=== PATIENT | female | born 1950 | race Caucasian/White ===

== ENCOUNTER 2017-03-12 15:59 | Inpatient (IN) | payer OTHER, MEDICAID ==
[~2017-03-12] VITALS: Ht 152.4 cm; Wt 41.7 kg
[2017-03-12 16:09] VITALS: BP_SYST 112
[2017-03-12 17:16] LABS: BASOPHILS % (AUTO) 0.4 % (0.0-2.0); HEMATOCRIT 40.7 % (36-48); HEMOGLOBIN 13.6 g/dL (12.0-16.0); LYMPHOCYTES # (AUTO) 2.9 K/uL (1.0-5.5); LYMPHOCYTES % (AUTO) 33.6 % (20.5-51.5); MEAN CORPUSCULAR HEMOGLOBIN 31 pg (27-31); MEAN CORPUSCULAR HGB CONC 33 % (32-36); MEAN CORPUSCULAR VOLUME 94 fL (79.0-98.0); MONOCYTES # (AUTO) 0.8 K/uL (0.0-1.0); MONOCYTES % (AUTO) 9.5 % (1.7-9.3); NEUTROPHILS # (AUTO) 4.9 K/uL (1.8-7.7); NEUTROPHILS % (AUTO) 56.5 % (40.0-70.0); RED BLOOD CELL COUNT(AUTO) 4.32 MIL/uL (4.2-6.2); RED CELL DISTRIBUTION WIDTH 12.4 % (9.0-15.0); WHITE BLOOD COUNT (AUTO) 8.6 K/uL (4.8-10.8)
[2017-03-12 17:21] LABS: PLATELET COUNT (AUTO) 190 K/uL (130-430)
[2017-03-12 17:23] LABS: CALCIUM 9.7 mg/dL (8.4-11.0); CREATININE 0.41 mg/dL (0.55-1.30); POTASSIUM 4.3 mmol/L (3.5-5.1)
[2017-03-12 17:27] LABS: TOTAL BILIRUBIN 0.6 mg/dL (0.0-1.0)
[2017-03-12 18:03] LABS: BILIRUBIN,URINE NEGATIVE (NEGATIVE); BLOOD, URINE TRACE (NEGATIVE); CLARITY/URINE HAZY (CLEAR); COLOR,URINE YELLOW (YELLOW); GLUCOSE,URINE NEGATIVE (NEGATIVE); KETONES,URINE NEGATIVE (NEGATIVE); LEUKOCYTE ESTERASE ,URINE 1+ (NEGATIVE); NITRITE, URINE POSITIVE (NEGATIVE); PH,URINE 6.5 (5.0-8.0); PROTEIN URINE NEGATIVE (NEGATIVE); UROBILINOGEN,URINE 0.2 (0.2-1.0)
[2017-03-12 18:14] LABS: BACTERIA,URINE MANY /HPF (None Seen); MUCUS,URINE 1+ /LPF (None Seen); WBC,URINE 20-50 /HPF (0-3)
[2017-03-12] MEDS ORDERED: cefTRIAXone 1 GM VIAL IM ONE (18:45)
[2017-03-12] MEDS ORDERED: TEMA30CA5 PO (19:44)
[2017-03-12] MEDS ORDERED: CALC625T65 PO (19:44)
[2017-03-12] MEDS ORDERED: LEVE500T53 PO (19:44)
[2017-03-12] MEDS ORDERED: PHEN64.8 PO (19:44)
[2017-03-12] MEDS ORDERED: SER100 PO (19:44)
[2017-03-12] MEDS ORDERED: TEMAZEPAM 15 MG CAPSULE PO SCH (21:00)
[2017-03-12] MEDS ORDERED: levETIRAcetam 500 MG TABLET PO SCH (21:00)
[2017-03-12] MEDS ORDERED: PHENobarbital 30 MG TABLET PO SCH (21:00)
[2017-03-12] MEDS ORDERED: LORazepam 2 MG/ML VIAL IVP PRN (21:00)
[2017-03-12] MEDS: levETIRAcetam 1,500 MG in NS 100 ML IV SCH (21:00)
[2017-03-12 21:08] VITALS: BP_SYST 136
[2017-03-12] MEDS ORDERED: ACETAMINOPHEN 650 MG SUPP.RECT RC PRN (21:15)
[2017-03-12] MEDS: D5LR 1,000 ML IV SCH (21:55)
[2017-03-12] MEDS: PANTOPRAZOLE SODIUM 40 MG/VIAL (PROTONIX) IVP SCH (23:15)
[2017-03-13 00:47] VITALS: BP_SYST 142
[2017-03-13] MEDS: LORazepam 2 MG/ML VIAL IVP PRN ×2 (00:59→18:40)
[2017-03-13 04:26] VITALS: BP_SYST 99
[2017-03-13] MEDS: D5LR 1,000 ML IV SCH ×2 (08:19→18:39)
[2017-03-13 08:30] VITALS: BP_SYST 117
[2017-03-13] MEDS: levETIRAcetam 1,500 MG in NS 100 ML IV SCH ×2 (09:20→22:24)
[2017-03-13] MEDS: PANTOPRAZOLE SODIUM 40 MG/VIAL (PROTONIX) IVP SCH ×2 (09:20→21:11)
[2017-03-13 11:51] VITALS: BP_SYST 111
[2017-03-13 16:50] VITALS: BP_SYST 103
[2017-03-13] MEDS ORDERED: QUEtiapine FUMARATE 100 MG TABLET PO SCH (18:00)
[2017-03-13 20:00] VITALS: BP_SYST 125
[2017-03-13] MEDS: cefTRIAXone 1 GM in D5W 50 ML IV SCH (21:12)
[2017-03-14 01:02] VITALS: BP_SYST 107
[2017-03-14 04:45] VITALS: BP_SYST 120
[2017-03-14] MEDS: D5LR 1,000 ML IV SCH ×3 (06:42→23:00)
[2017-03-14 08:00] VITALS: BP_SYST 103
[2017-03-14 08:28] LABS: BASOPHILS % (AUTO) 0.1 % (0.0-2.0); HEMATOCRIT 36.9 % (36-48); HEMOGLOBIN 12.5 g/dL (12.0-16.0); LYMPHOCYTES # (AUTO) 2.1 K/uL (1.0-5.5); LYMPHOCYTES % (AUTO) 41.1 % (20.5-51.5); MEAN CORPUSCULAR HEMOGLOBIN 32 pg (27-31); MEAN CORPUSCULAR HGB CONC 34 % (32-36); MEAN CORPUSCULAR VOLUME 94 fL (79.0-98.0); MONOCYTES # (AUTO) 0.5 K/uL (0.0-1.0); MONOCYTES % (AUTO) 10.2 % (1.7-9.3); NEUTROPHILS # (AUTO) 2.4 K/uL (1.8-7.7); NEUTROPHILS % (AUTO) 48.6 % (40.0-70.0); PLATELET COUNT (AUTO) 145 K/uL (130-430); RED BLOOD CELL COUNT(AUTO) 3.93 MIL/uL (4.2-6.2)
[2017-03-14 08:41] LABS: INR 1.2 (0.8-1.2); PROTHROMBIN TIME 11.8 SECS (9.5-12.5)
[2017-03-14 08:45] LABS: ALBUMIN 3.2 g/dL (3.4-4.8); CALCIUM 8.8 mg/dL (8.4-11.0); CREATININE 0.3 mg/dL (0.55-1.30); POTASSIUM 3.3 mmol/L (3.5-5.1); TOTAL BILIRUBIN 0.5 mg/dL (0.0-1.0)
[2017-03-14] MEDS: PANTOPRAZOLE SODIUM 40 MG/VIAL (PROTONIX) IVP SCH ×2 (09:27→20:59)
[2017-03-14] MEDS: levETIRAcetam 1,500 MG in NS 100 ML IV SCH ×2 (10:26→20:59)
[2017-03-14] MEDS ORDERED: POTASSIUM CHLORIDE 40 MEQ, LIDOCAINE JECT 2% PF 100 MG 50 MG in NS 250 ML IV ONE (12:30)
[2017-03-14 12:53] VITALS: BP_SYST 142
[2017-03-14] MEDS ORDERED: MAGNESIUM SULFATE 50 ML IV ONE (13:00)
[2017-03-14 16:11] VITALS: BP_SYST 113
[2017-03-14 20:00] VITALS: BP_SYST 90
[2017-03-14] MEDS: cefTRIAXone 1 GM in D5W 50 ML IV SCH (20:59)
[2017-03-14] MEDS: LORazepam 2 MG/ML VIAL IVP PRN (21:57)
[2017-03-15] VITALS (7 sets, daily range): BP systolic 106–133
[2017-03-15] MEDS: D5LR 1,000 ML IV SCH ×2 (08:33→17:48)
[2017-03-15 08:56] LABS: CALCIUM 8.5 mg/dL (8.4-11.0); CREATININE 0.39 mg/dL (0.55-1.30); POTASSIUM 3.7 mmol/L (3.5-5.1)
[2017-03-15] MEDS: levETIRAcetam 1,500 MG in NS 100 ML IV SCH ×2 (09:03→20:47)
[2017-03-15] MEDS: PANTOPRAZOLE SODIUM 40 MG/VIAL (PROTONIX) IVP SCH ×2 (09:03→21:20)
[2017-03-15] MEDS: LORazepam 2 MG/ML VIAL IVP PRN ×2 (16:38→20:38)
[2017-03-15] MEDS: cefTRIAXone 1 GM in D5W 50 ML IV SCH (20:47)
[2017-03-16 00:16] VITALS: BP_SYST 142
[2017-03-16 04:03] VITALS: BP_SYST 114
[2017-03-16] MEDS: D5LR 1,000 ML IV SCH ×3 (05:51→23:03)
[2017-03-16 08:11] LABS: CREATININE 0.39 mg/dL (0.55-1.30); POTASSIUM 3.2 mmol/L (3.5-5.1)
[2017-03-16 08:20] VITALS: BP_SYST 135
[2017-03-16] MEDS: levETIRAcetam 1,500 MG in NS 100 ML IV SCH ×2 (09:10→21:53)
[2017-03-16] MEDS: PANTOPRAZOLE SODIUM 40 MG/VIAL (PROTONIX) IVP SCH ×2 (09:10→21:53)
[2017-03-16 11:26] VITALS: BP_SYST 135
[2017-03-16] MEDS ORDERED: POTASSIUM CHLORIDE 40 MEQ, LIDOCAINE JECT 2% PF 100 MG 50 MG in NS 250 ML IV ONE (14:15)
[2017-03-16 15:43] VITALS: BP_SYST 122
[2017-03-16] MEDS: LORazepam 2 MG/ML VIAL IVP PRN ×2 (17:25→22:55)
[2017-03-16] MEDS: cefTRIAXone 1 GM in D5W 50 ML IV SCH (22:52)
[2017-03-17 00:05] VITALS: BP_SYST 126
[2017-03-17 03:53] VITALS: BP_SYST 119
[2017-03-17 08:00] VITALS: BP_SYST 140
[2017-03-17] MEDS: PANTOPRAZOLE SODIUM 40 MG/VIAL (PROTONIX) IVP SCH ×2 (09:23→21:09)
[2017-03-17] MEDS: D5LR 1,000 ML IV SCH ×2 (09:24→11:00)
[2017-03-17] MEDS: levETIRAcetam 1,500 MG in NS 100 ML IV SCH ×2 (09:24→21:09)
[2017-03-17 11:50] VITALS: BP_SYST 143
[2017-03-17 16:05] VITALS: BP_SYST 98
[2017-03-17] MEDS: LORazepam 2 MG/ML VIAL IVP PRN ×2 (21:16→22:35)
[2017-03-17] MEDS: cefTRIAXone 1 GM in D5W 50 ML IV SCH (22:37)
[2017-03-18 00:20] VITALS: BP_SYST 120
[2017-03-18] MEDS: D5LR 1,000 ML IV SCH ×2 (02:05→15:58)
[2017-03-18 05:31] VITALS: BP_SYST 109
[2017-03-18 07:04] LABS: CALCIUM 9.2 mg/dL (8.4-11.0); CREATININE 0.41 mg/dL (0.55-1.30); POTASSIUM 4.1 mmol/L (3.5-5.1)
[2017-03-18 07:07] LABS: BASOPHILS % (AUTO) 0.1 % (0.0-2.0); HEMATOCRIT 36.6 % (36-48); HEMOGLOBIN 12.8 g/dL (12.0-16.0); LYMPHOCYTES # (AUTO) 2.4 K/uL (1.0-5.5); LYMPHOCYTES % (AUTO) 40.1 % (20.5-51.5); MEAN CORPUSCULAR HEMOGLOBIN 33 pg (27-31); MEAN CORPUSCULAR HGB CONC 35 % (32-36); MEAN CORPUSCULAR VOLUME 93 fL (79.0-98.0); MONOCYTES # (AUTO) 0.6 K/uL (0.0-1.0); MONOCYTES % (AUTO) 9.5 % (1.7-9.3); NEUTROPHILS # (AUTO) 2.9 K/uL (1.8-7.7); NEUTROPHILS % (AUTO) 50.3 % (40.0-70.0); PLATELET COUNT (AUTO) 159 K/uL (130-430); RED BLOOD CELL COUNT(AUTO) 3.95 MIL/uL (4.2-6.2); RED CELL DISTRIBUTION WIDTH 12.4 % (9.0-15.0); WHITE BLOOD COUNT (AUTO) 5.9 K/uL (4.8-10.8)
[2017-03-18 07:11] LABS: INR 1.2 (0.8-1.2); PROTHROMBIN TIME 12.1 SECS (9.5-12.5)
[2017-03-18 08:15] VITALS: BP_SYST 115
[2017-03-18] MEDS: levETIRAcetam 1,500 MG in NS 100 ML IV SCH ×2 (09:07→22:13)
[2017-03-18] MEDS: PANTOPRAZOLE SODIUM 40 MG/VIAL (PROTONIX) IVP SCH ×2 (09:09→22:09)
[2017-03-18] MEDS: MIDAZOLAM HCL 5 MG/5 ML VIAL ONE ×3 (11:57→12:02)
[2017-03-18] MEDS: MEPERIDINE HCL/PF 25 MG/ML DISP.SYRIN ONE ×4 (11:57→12:02)
[2017-03-18 12:40] VITALS: BP_SYST 128
[2017-03-18 16:42] VITALS: BP_SYST 116
[2017-03-18 20:05] VITALS: BP_SYST 118
[2017-03-18] MEDS: cefTRIAXone 1 GM in D5W 50 ML IV SCH (21:44)
[2017-03-18] MEDS: LORazepam 2 MG/ML VIAL IVP PRN (22:47)
[2017-03-19 03:05] VITALS: BP_SYST 136
[2017-03-19 05:05] VITALS: BP_SYST 136
[2017-03-19 06:04] VITALS: BP_SYST 110
[2017-03-19 08:00] VITALS: BP_SYST 132
[2017-03-19 08:58] VITALS: BP_SYST 132; BP_SYST 134
[2017-03-19] MEDS: levETIRAcetam 1,500 MG in NS 100 ML IV SCH (09:04)
[2017-03-19] MEDS: PANTOPRAZOLE SODIUM 40 MG/VIAL (PROTONIX) IVP SCH (09:05)
[2017-03-19] MEDS ORDERED: LORazepam 2 MG/ML VIAL IVP ONE (11:15)
[2017-03-19 12:13] VITALS: BP_SYST 134
== END 2017-03-19 15:20 | disposition home health service (06) | DRG 100 ==
LOC: SED 15:59 → STU 19:25
PROVIDERS: ADMIT Internal Medicine; ATTEND Internal Medicine
PROC: 0DB68ZX Excision of Stomach, Via Natural or Artificial Opening Endoscopic, Diagnostic (ICD-10-PCS; principal; 2017-03-18 15:30)
DX: G40.909 Epilepsy, unspecified, not intractable, without status epilepticus (principal); R53.2 Functional quadriplegia; G93.40 Encephalopathy, unspecified; E44.1 Mild protein-calorie malnutrition; R13.10 Dysphagia, unspecified; Q39.6 Congenital diverticulum of esophagus; Z68.1 Body mass index [BMI] 19.9 or less, adult; F03.90 Unspecified dementia, unspecified severity, without behavioral disturbance, psychotic disturbance, mood disturbance, and anxiety; K22.4 Dyskinesia of esophagus; K29.00 Acute gastritis without bleeding; E87.6 Hypokalemia; K44.9 Diaphragmatic hernia without obstruction or gangrene; F79 Unspecified intellectual disabilities; F29 Unspecified psychosis not due to a substance or known physiological condition; Z79.899 Other long term (current) drug therapy; Z86.73 Personal history of transient ischemic attack (TIA), and cerebral infarction without residual deficits; Z99.3 Dependence on wheelchair; Z88.0 Allergy status to penicillin; Z88.8 Allergy status to other drugs, medicaments and biological substances
CPT/HCPCS: 36415; 43239; 70450-TC; 74000-TC; 74220-TC; 80048; 80053; 81000-TC; 83690-TC; 83735-TC; 85025; 85610-TC; 85730-TC; 87081; 87086; 87186-TC; 88305; 88312; 88313; 92610-GN; 96372; 99285; C9113; J0696; J1953; J2060; J2175; J2250; J3475; J3480; J7050; J7060; J7120

== ENCOUNTER 2018-05-08 17:22 | Inpatient (IN) | payer OTHER, MEDICAID ==
[~2018-05-08] VITALS: Ht 147.3 cm; Wt 38.1 kg
[~2018-05-08 17:22] MED LIST: BENZ0.5T3 PO; FLUO-119 PO; IBUP-1968 PO; LEVE500T9 PO; PHEN30TA41 PO; POLY17PO4 PO; QUET50TA PO; TEMA30CA PO; TEMA30CA5 PO; TYC3 PO
[2018-05-08 17:28] VITALS: BP_SYST 146
[2018-05-08] MEDS ORDERED: NACL 0.9% 1,000 ML IV ONE (17:41)
[2018-05-08] MEDS ORDERED: ASPIRIN 81 MG TAB.CHEW PO ONE (17:45)
[2018-05-08] MEDS ORDERED: LORazepam 2 MG/ML VIAL (FOR ER USE) IVP ONE ×2 (18:15→18:45)
[2018-05-08 18:18] LABS: BASOPHILS % (AUTO) 0.2 % (0.0-2.0); EOSINOPHILS % (AUTO) 0.1 % (0.0-4.0); HEMATOCRIT 40.4 % (36-48); LYMPHOCYTES # (AUTO) 0.8 K/uL (1.0-5.5); LYMPHOCYTES % (AUTO) 6.7 % (20.5-51.5); MEAN CORPUSCULAR HEMOGLOBIN 31 pg (27-31); MEAN CORPUSCULAR HGB CONC 32 % (32-36); MEAN CORPUSCULAR VOLUME 96 fL (79.0-98.0); MONOCYTES # (AUTO) 0.9 K/uL (0.0-1.0); MONOCYTES % (AUTO) 7.8 % (1.7-9.3); NEUTROPHILS # (AUTO) 10.1 K/uL (1.8-7.7); NEUTROPHILS % (AUTO) 85.2 % (40.0-70.0); PLATELET COUNT (AUTO) 247 K/uL (130-430); RED BLOOD CELL COUNT(AUTO) 4.21 MIL/uL (4.2-6.2); RED CELL DISTRIBUTION WIDTH 12.8 % (9.0-15.0); WHITE BLOOD COUNT (AUTO) 11.8 K/uL (4.8-10.8)
[2018-05-08 18:31] LABS: BILIRUBIN,URINE NEGATIVE (NEGATIVE); BLOOD, URINE NEGATIVE (NEGATIVE); CLARITY/URINE SL CLOUDY (CLEAR); COLOR,URINE YELLOW (YELLOW); GLUCOSE,URINE NEGATIVE (NEGATIVE); KETONES,URINE NEGATIVE (NEGATIVE); LEUKOCYTE ESTERASE ,URINE NEGATIVE (NEGATIVE); NITRITE, URINE NEGATIVE (NEGATIVE); PH,URINE 6.5 (5.0-8.0); PROTEIN URINE 2+ (NEGATIVE); UROBILINOGEN,URINE 0.2 (0.2-1.0)
[2018-05-08 18:33] LABS: ANION GAP 8 (5-15); CALCIUM 9.4 mg/dL (8.4-11.0); CHLORIDE 97 mmol/L (98-107); CREATININE 0.62 mg/dL (0.55-1.30); GLUCOSE 109 mg/dL (70-99); SODIUM SERUM 132 mmol/L (136-145); UREA NITROGEN, BLOOD 17 mg/dL (8-21)
[2018-05-08 18:34] LABS: BACTERIA,URINE MODERATE /HPF (None Seen); RBC,URINE 0-3 /HPF (0-3); WBC,URINE 0-3 /HPF (0-3)
[2018-05-08 18:35] LABS: MUCUS,URINE 1+ /LPF (None Seen); URINE AMORPHOUS URATE 2+ /HPF (None Seen)
[2018-05-08 18:37] LABS: GFR AFRICAN AMERICAN 124 mL/min (>90)
[2018-05-08 18:38] LABS: BARBITURATE, URINE POSITIVE (NEG <=200)
[2018-05-08 18:39] LABS: ALANINE AMINOTRANSFERASE 24 U/L (12-78); ALBUMIN 3.7 g/dL (3.4-4.8); ASPARTATE AMINOTRANSFERASE 28 U/L (10-37); LIPASE 107 U/L (73-393)
[2018-05-08 18:39] LABS: BENZODIAZEPINE, URINE POSITIVE (NEG <=150); CANNABINOID, URINE NEGATIVE (NEG <=50); COCAINE, URINE NEGATIVE (NEG <=150); METHAMPHETAMINES SCREEN,URINE NEGATIVE (NEG <=500); OPIATE, URINE NEGATIVE (NEG <=100); PHENCYCLIDINE SCREEN,URINE NEGATIVE (NEG <=25); UR TRICYCLIC ANTIDEPRESSANTS NEGATIVE (NEG <=300); URINE AMPHETAMINE NEGATIVE (NEG <=500); URINE METHADONE NEGATIVE (NEG <=200); URINE OXYCODONE SCREEN NEGATIVE (NEG <=100); URINE PROPOXYPHENE SCREEN NEGATIVE (NEG <=300)
[2018-05-08 18:40] LABS: ACETAMINOPHEN < 1 ug/mL (1-30); ALCOHOL, BLOOD < 3 mg/dL (<10); INR 1.2 (0.8-1.2)
[2018-05-08] MEDS ORDERED: MORPHINE 4 MG/ML INJ. SYRINGE IVP ONE (20:15)
[2018-05-08] MEDS ORDERED: DOCU-144 PO (21:22)
[2018-05-08] MEDS ORDERED: MULT-1089 PO (21:22)
[2018-05-08] MEDS ORDERED: PHEN30TA41 PO (21:22)
[2018-05-08] MEDS ORDERED: CALC625T65 PO (21:22)
[2018-05-08] MEDS ORDERED: BENZ0.5T3 PO (21:22)
[2018-05-08] MEDS ORDERED: POLY17PO4 PO (21:22)
[2018-05-08] MEDS ORDERED: [UNRECOGNIZED DRUG - CODE] PO (21:22)
[2018-05-08] MEDS ORDERED: [UNRECOGNIZED DRUG - CODE] PO (21:22)
[2018-05-08] MEDS ORDERED: VITD400 PO (21:22)
[2018-05-08] MEDS ORDERED: PRO20 PO (21:22)
[2018-05-08] MEDS ORDERED: ACETAMINOPHEN/CODEINE 300 MG-30 MG TABLET PO PRN (22:15)
[2018-05-08] MEDS ORDERED: ALBUTEROL SULFATE 0.083% 2.5 MG/3 ML VIAL.NEB INH PRN (22:15)
[2018-05-08] MEDS ORDERED: IBUPROFEN 400 MG TABLET PO PRN (22:15)
[2018-05-08] MEDS ORDERED: levETIRAcetam 500 MG TABLET PO ONE (22:30)
[2018-05-08] MEDS ORDERED: TEMAZEPAM 15 MG CAPSULE PO PRN (22:30)
[2018-05-08 22:42] VITALS: BP_SYST 100
[2018-05-08 23:01] VITALS: BP_SYST 100
[2018-05-08] MEDS: NACL 0.9% 1,000 ML IV SCH (23:13)
[2018-05-09 02:11] VITALS: BP_SYST 132
[2018-05-09 04:07] VITALS: BP_SYST 132
[2018-05-09 07:16] LABS: EOSINOPHILS % (AUTO) 0.3 % (0.0-4.0); HEMATOCRIT 35.6 % (36-48); HEMOGLOBIN 12.1 g/dL (12.0-16.0); LYMPHOCYTES # (AUTO) 0.8 K/uL (1.0-5.5); LYMPHOCYTES % (AUTO) 11.1 % (20.5-51.5); MEAN CORPUSCULAR HEMOGLOBIN 33 pg (27-31); MEAN CORPUSCULAR HGB CONC 34 % (32-36); MEAN CORPUSCULAR VOLUME 96 fL (79.0-98.0); MONOCYTES # (AUTO) 0.7 K/uL (0.0-1.0); MONOCYTES % (AUTO) 9.8 % (1.7-9.3); NEUTROPHILS # (AUTO) 5.8 K/uL (1.8-7.7); NEUTROPHILS % (AUTO) 78.8 % (40.0-70.0); PLATELET COUNT (AUTO) 190 K/uL (130-430); RED CELL DISTRIBUTION WIDTH 12.7 % (9.0-15.0); WHITE BLOOD COUNT (AUTO) 7.3 K/uL (4.8-10.8)
[2018-05-09 07:41] LABS: CALCIUM 8.9 mg/dL (8.4-11.0); CREATININE 0.44 mg/dL (0.55-1.30); POTASSIUM 3.9 mmol/L (3.5-5.1)
[2018-05-09 08:06] VITALS: BP_SYST 141
[2018-05-09] MEDS: BENZTROPINE MESYLATE 1 MG TABLET PO SCH ×2 (08:27→20:52)
[2018-05-09] MEDS: CHOLECALCIFEROL (VITAMIN D-3) 400 UNIT TABLET PO SCH (08:28)
[2018-05-09] MEDS: FLUoxetine HCL 20 MG CAPSULE (PROzac) PO SCH (08:28)
[2018-05-09] MEDS: levETIRAcetam 500 MG TABLET PO SCH ×2 (08:28→20:51)
[2018-05-09] MEDS: DOCUSATE SODIUM 100 MG/10 ML UDC PO SCH (08:29)
[2018-05-09] MEDS: POLYETHYLENE GLYCOL 3350, 17 GM/ POWD.PACK PO SCH ×2 (08:29→20:51)
[2018-05-09] MEDS: MULTIVITAMINS TAB 1 TABLET PO SCH (08:29)
[2018-05-09] MEDS ORDERED: NUT TX IMPAIRED DIGEST FXN PO SCH (09:00)
[2018-05-09] MEDS ORDERED: CALCIUM POLYCARBOPHIL 625 MG PO SCH (09:00)
[2018-05-09] MEDS ORDERED: LORazepam 2 MG/ML VIAL IVP ONE (10:00)
[2018-05-09 12:34] VITALS: BP_SYST 148
[2018-05-09 16:02] VITALS: BP_SYST 165
[2018-05-09] MEDS: NACL 0.9% 1,000 ML IV SCH (18:32)
[2018-05-09 19:49] VITALS: BP_SYST 137
[2018-05-09] MEDS: LEVOFLOXACIN 250 MG/D5W 50 ML IV SCH (19:53)
[2018-05-09] MEDS: PHENobarbital 30 MG TABLET PO SCH (20:52)
[2018-05-09] MEDS ORDERED: QUEtiapine FUMARATE 25 MG TABLET PO SCH (21:00)
[2018-05-09] MEDS ORDERED: PSYLLIUM HUSK 0.4 GM PO SCH (21:00)
[2018-05-10 06:24] VITALS: BP_SYST 125
[2018-05-10 07:40] LABS: BASOPHILS % (AUTO) 0.6 % (0.0-2.0); EOSINOPHILS % (AUTO) 0.1 % (0.0-4.0); HEMATOCRIT 36.6 % (36-48); HEMOGLOBIN 12.1 g/dL (12.0-16.0); LYMPHOCYTES # (AUTO) 1.2 K/uL (1.0-5.5); LYMPHOCYTES % (AUTO) 17.3 % (20.5-51.5); MEAN CORPUSCULAR HEMOGLOBIN 32 pg (27-31); MEAN CORPUSCULAR HGB CONC 33 % (32-36); MEAN CORPUSCULAR VOLUME 96 fL (79.0-98.0); MONOCYTES # (AUTO) 0.7 K/uL (0.0-1.0); MONOCYTES % (AUTO) 10.4 % (1.7-9.3); NEUTROPHILS % (AUTO) 71.6 % (40.0-70.0); PLATELET COUNT (AUTO) 192 K/uL (130-430); RED BLOOD CELL COUNT(AUTO) 3.82 MIL/uL (4.2-6.2); RED CELL DISTRIBUTION WIDTH 12.5 % (9.0-15.0); WHITE BLOOD COUNT (AUTO) 6.9 K/uL (4.8-10.8)
[2018-05-10 07:55] LABS: ALBUMIN 2.8 g/dL (3.4-4.8); CALCIUM 8.5 mg/dL (8.4-11.0); CREATININE 0.4 mg/dL (0.55-1.30); POTASSIUM 3.4 mmol/L (3.5-5.1); TOTAL BILIRUBIN 0.6 mg/dL (0.0-1.0)
[2018-05-10 08:00] VITALS: BP_SYST 141
[2018-05-10] MEDS: levETIRAcetam 500 MG TABLET PO SCH ×2 (08:52→20:42)
[2018-05-10] MEDS: POLYETHYLENE GLYCOL 3350, 17 GM/ POWD.PACK PO SCH ×2 (08:52→20:46)
[2018-05-10] MEDS: DOCUSATE SODIUM 100 MG/10 ML UDC PO SCH (08:52)
[2018-05-10] MEDS: BENZTROPINE MESYLATE 1 MG TABLET PO SCH ×2 (08:52→20:45)
[2018-05-10] MEDS: MULTIVITAMINS TAB 1 TABLET PO SCH (08:53)
[2018-05-10] MEDS: CHOLECALCIFEROL (VITAMIN D-3) 400 UNIT TABLET PO SCH (08:53)
[2018-05-10] MEDS: FLUoxetine HCL 20 MG CAPSULE (PROzac) PO SCH (08:53)
[2018-05-10 10:22] LABS: INR 1.2 (0.8-1.2); PROTHROMBIN TIME 11.7 SECS (9.5-12.5)
[2018-05-10 12:32] VITALS: BP_SYST 130
[2018-05-10] MEDS: NACL 0.9% 1,000 ML IV SCH (13:23)
[2018-05-10] MEDS ORDERED: BALSAM PERU/CASTOR OIL 60 GM OINT...G. TP ONE (16:15)
[2018-05-10 16:32] VITALS: BP_SYST 117
[2018-05-10] MEDS ORDERED: TEMAZEPAM 15 MG CAPSULE PO PRN (19:00)
[2018-05-10 19:50] VITALS: BP_SYST 125
[2018-05-10] MEDS: POTASSIUM CHLORIDE 40 MEQ in NACL 0.9% 1,000 ML IV SCH (20:35)
[2018-05-10] MEDS: LEVOFLOXACIN 250 MG/D5W 50 ML IV SCH (20:36)
[2018-05-10] MEDS: QUEtiapine FUMARATE 25 MG TABLET PO SCH (20:43)
[2018-05-11 00:54] VITALS: BP_SYST 155
[2018-05-11 08:04] VITALS: BP_SYST 128
[2018-05-11] MEDS: levETIRAcetam 500 MG TABLET PO SCH ×2 (08:41→21:05)
[2018-05-11] MEDS: FLUoxetine HCL 20 MG CAPSULE (PROzac) PO SCH (08:41)
[2018-05-11] MEDS: BENZTROPINE MESYLATE 1 MG TABLET PO SCH ×2 (08:41→21:05)
[2018-05-11] MEDS: CHOLECALCIFEROL (VITAMIN D-3) 400 UNIT TABLET PO SCH (08:41)
[2018-05-11] MEDS: DOCUSATE SODIUM 100 MG/10 ML UDC PO SCH (08:42)
[2018-05-11] MEDS: POLYETHYLENE GLYCOL 3350, 17 GM/ POWD.PACK PO SCH ×2 (08:42→21:05)
[2018-05-11] MEDS: BALSAM PERU/CASTOR OIL 60 GM OINT...G. TP SCH (08:42)
[2018-05-11] MEDS: MULTIVITAMINS TAB 1 TABLET PO SCH (08:42)
[2018-05-11 11:09] LABS: BASOPHILS % (AUTO) 0.3 % (0.0-2.0); HEMATOCRIT 37.8 % (36-48); HEMOGLOBIN 12.1 g/dL (12.0-16.0); LYMPHOCYTES % (AUTO) 13.4 % (20.5-51.5); MEAN CORPUSCULAR HEMOGLOBIN 31 pg (27-31); MEAN CORPUSCULAR HGB CONC 32 % (32-36); MEAN CORPUSCULAR VOLUME 95 fL (79.0-98.0); MONOCYTES # (AUTO) 0.9 K/uL (0.0-1.0); NEUTROPHILS # (AUTO) 5.8 K/uL (1.8-7.7); NEUTROPHILS % (AUTO) 75.3 % (40.0-70.0); PLATELET COUNT (AUTO) 225 K/uL (130-430); RED BLOOD CELL COUNT(AUTO) 3.97 MIL/uL (4.2-6.2); RED CELL DISTRIBUTION WIDTH 12.5 % (9.0-15.0); WHITE BLOOD COUNT (AUTO) 7.7 K/uL (4.8-10.8)
[2018-05-11] MEDS ORDERED: LORazepam 2 MG/ML VIAL IVP ONE (11:15)
[2018-05-11 11:24] VITALS: BP_SYST 146
[2018-05-11 11:35] LABS: CALCIUM 8.5 mg/dL (8.4-11.0); CREATININE 0.44 mg/dL (0.55-1.30); POTASSIUM 3.7 mmol/L (3.5-5.1)
[2018-05-11 11:41] LABS: TOTAL BILIRUBIN 0.6 mg/dL (0.0-1.0)
[2018-05-11 15:40] VITALS: BP_SYST 116
[2018-05-11] MEDS: POTASSIUM CHLORIDE 40 MEQ in NACL 0.9% 1,000 ML IV SCH (17:21)
[2018-05-11 19:45] VITALS: BP_SYST 128
[2018-05-11] MEDS: QUEtiapine FUMARATE 25 MG TABLET PO SCH (21:05)
[2018-05-11] MEDS: LEVOFLOXACIN 250 MG/D5W 50 ML IV SCH (21:05)
[2018-05-11] MEDS: PHENobarbital 30 MG TABLET PO SCH (21:28)
[2018-05-11] MEDS: metroNIDAZOLE 500 mg/NS 100 ML IV SCH (22:22)
[2018-05-12] VITALS: BP_SYST 133
[2018-05-12 07:27] VITALS: BP_SYST 132
[2018-05-12 08:25] VITALS: BP_SYST 132
[2018-05-12] MEDS: levETIRAcetam 500 MG TABLET PO SCH ×2 (09:12→21:27)
[2018-05-12] MEDS: CHOLECALCIFEROL (VITAMIN D-3) 400 UNIT TABLET PO SCH (09:12)
[2018-05-12] MEDS: BENZTROPINE MESYLATE 1 MG TABLET PO SCH ×2 (09:12→21:27)
[2018-05-12] MEDS: FLUoxetine HCL 20 MG CAPSULE (PROzac) PO SCH (09:12)
[2018-05-12] MEDS: DOCUSATE SODIUM 100 MG/10 ML UDC PO SCH (09:12)
[2018-05-12] MEDS: POLYETHYLENE GLYCOL 3350, 17 GM/ POWD.PACK PO SCH ×2 (09:13→21:27)
[2018-05-12] MEDS: MULTIVITAMINS TAB 1 TABLET PO SCH (09:13)
[2018-05-12] MEDS: metroNIDAZOLE 500 mg/NS 100 ML IV SCH ×2 (09:13→23:20)
[2018-05-12] MEDS: BALSAM PERU/CASTOR OIL 60 GM OINT...G. TP SCH (09:14)
[2018-05-12 11:54] VITALS: BP_SYST 107
[2018-05-12] MEDS: POTASSIUM CHLORIDE 40 MEQ in NACL 0.9% 1,000 ML IV SCH (13:58)
[2018-05-12] MEDS ORDERED: NA PHOS,M-B/NA PHOS,DI-BA 118 ML (FLEET ENEMA) RC ONE (15:15)
[2018-05-12] MEDS ORDERED: MINERAL OIL 133 ML ENEMA RC ONE (15:15)
[2018-05-12 17:14] VITALS: BP_SYST 120
[2018-05-12 20:00] VITALS: BP_SYST 122
[2018-05-12] MEDS: QUEtiapine FUMARATE 25 MG TABLET PO SCH (21:27)
[2018-05-12] MEDS: LEVOFLOXACIN 250 MG/D5W 50 ML IV SCH (21:28)
[2018-05-13 00:42] VITALS: BP_SYST 150
[2018-05-13] MEDS: POTASSIUM CHLORIDE 40 MEQ in NACL 0.9% 1,000 ML IV SCH (08:42)
[2018-05-13] MEDS: BALSAM PERU/CASTOR OIL 60 GM OINT...G. TP SCH (09:00)
[2018-05-13] MEDS: BENZTROPINE MESYLATE 1 MG TABLET PO SCH ×2 (09:38→22:01)
[2018-05-13] MEDS: FLUoxetine HCL 20 MG CAPSULE (PROzac) PO SCH (09:38)
[2018-05-13] MEDS: CHOLECALCIFEROL (VITAMIN D-3) 400 UNIT TABLET PO SCH (09:38)
[2018-05-13] MEDS: levETIRAcetam 500 MG TABLET PO SCH ×2 (09:38→22:01)
[2018-05-13] MEDS: DOCUSATE SODIUM 100 MG/10 ML UDC PO SCH (09:38)
[2018-05-13] MEDS: metroNIDAZOLE 500 mg/NS 100 ML IV SCH ×2 (09:39→22:02)
[2018-05-13] MEDS: POLYETHYLENE GLYCOL 3350, 17 GM/ POWD.PACK PO SCH ×2 (09:39→22:01)
[2018-05-13] MEDS: MULTIVITAMINS TAB 1 TABLET PO SCH (09:39)
[2018-05-13 12:04] VITALS: BP_SYST 124
[2018-05-13 16:02] VITALS: BP_SYST 144
[2018-05-13 19:10] VITALS: BP_SYST 118
[2018-05-13] MEDS: LEVOFLOXACIN 250 MG/D5W 50 ML IV SCH (22:00)
[2018-05-13] MEDS: QUEtiapine FUMARATE 25 MG TABLET PO SCH (22:00)
[2018-05-13] MEDS: PHENobarbital 30 MG TABLET PO SCH (22:01)
[2018-05-14 00:45] VITALS: BP_SYST 97
[2018-05-14 08:00] VITALS: BP_SYST 142
[2018-05-14] MEDS: metroNIDAZOLE 500 mg/NS 100 ML IV SCH (09:16)
[2018-05-14] MEDS: MULTIVITAMINS TAB 1 TABLET PO SCH (09:17)
[2018-05-14] MEDS: BENZTROPINE MESYLATE 1 MG TABLET PO SCH (09:17)
[2018-05-14] MEDS: CHOLECALCIFEROL (VITAMIN D-3) 400 UNIT TABLET PO SCH (09:18)
[2018-05-14] MEDS: FLUoxetine HCL 20 MG CAPSULE (PROzac) PO SCH (09:18)
[2018-05-14] MEDS: levETIRAcetam 500 MG TABLET PO SCH (09:18)
[2018-05-14] MEDS: DOCUSATE SODIUM 100 MG/10 ML UDC PO SCH (09:19)
[2018-05-14] MEDS: POLYETHYLENE GLYCOL 3350, 17 GM/ POWD.PACK PO SCH (09:19)
[2018-05-14] MEDS: BALSAM PERU/CASTOR OIL 60 GM OINT...G. TP SCH (09:20)
[2018-05-14] MEDS ORDERED: LEVO250T2 PO (11:46)
[2018-05-14 11:50] VITALS: BP_SYST 146
[2018-05-14 12:06] VITALS: BP_SYST 140
== END 2018-05-14 15:00 | disposition home health service (06) | DRG 871 ==
LOC: SED 17:22 → STU 20:36 → SMU 05-11 12:22
PROVIDERS: ADMIT Internal Medicine; ATTEND Internal Medicine
DX: A41.9 Sepsis, unspecified organism (principal); S72.142A Displaced intertrochanteric fracture of left femur, initial encounter for closed fracture; E43 Unspecified severe protein-calorie malnutrition; J69.0 Pneumonitis due to inhalation of food and vomit; R53.2 Functional quadriplegia; S32.019A Unspecified fracture of first lumbar vertebra, initial encounter for closed fracture; S32.029A Unspecified fracture of second lumbar vertebra, initial encounter for closed fracture; S32.039A Unspecified fracture of third lumbar vertebra, initial encounter for closed fracture; E87.1 Hypo-osmolality and hyponatremia; E87.2 Acidosis; F72 Severe intellectual disabilities; N39.0 Urinary tract infection, site not specified; Z68.1 Body mass index [BMI] 19.9 or less, adult; R64 Cachexia; I96 Gangrene, not elsewhere classified; M80.00XA Age-related osteoporosis with current pathological fracture, unspecified site, initial encounter for fracture; F03.90 Unspecified dementia, unspecified severity, without behavioral disturbance, psychotic disturbance, mood disturbance, and anxiety; F48.9 Nonpsychotic mental disorder, unspecified; G40.909 Epilepsy, unspecified, not intractable, without status epilepticus; I51.7 Cardiomegaly; J44.9 Chronic obstructive pulmonary disease, unspecified; M40.209 Unspecified kyphosis, site unspecified; R13.10 Dysphagia, unspecified; R62.7 Adult failure to thrive; E87.6 Hypokalemia; I34.0 Nonrheumatic mitral (valve) insufficiency; M47.9 Spondylosis, unspecified; G20 Parkinson's disease; W06.XXXA Fall from bed, initial encounter; Z74.01 Bed confinement status; Z99.3 Dependence on wheelchair; Y93.89 Activity, other specified; Y92.89 Other specified places as the place of occurrence of the external cause; Y99.8 Other external cause status; Z88.0 Allergy status to penicillin; Z88.8 Allergy status to other drugs, medicaments and biological substances; Z79.899 Other long term (current) drug therapy
CPT/HCPCS: 36415; 70450-TC; 71045; 71250-TC; 72128; 72131; 72192-TC; 80048; 80053; 80307; 81000-TC; 82550-TC; 83605; 83690-TC; 83735-TC; 84134; 84484; 85025; 85610-TC; 85730-TC; 86886; 86900; 86901; 87040-TC; 87081; 87086; 93005; 96361; 96365; 96375; 99291; G0378; G0480; G0481; G0482; J1956; J2060; J2270; J3480; J3490; J7030

== ENCOUNTER 2018-06-10 17:31 | Inpatient (IN) | payer OTHER, MEDICAID ==
[~2018-06-10] VITALS: Ht 147.3 cm; Wt 39.9 kg
[~2018-06-10 17:31] MED LIST changes: +CALC625T65 PO; +DOCU-144 PO; +LEVO250T2 PO; +MULT-1089 PO; +PRO20 PO; -QUET50TA PO; +VITD400 PO; +[UNRECOGNIZED DRUG - CODE] PO; +[UNRECOGNIZED DRUG - CODE] PO
[2018-06-10 17:49] VITALS: BP_SYST 109
[2018-06-10] MEDS ORDERED: LORazepam 2 MG/ML VIAL IM ONE (19:15)
[2018-06-10 19:21] LABS: HEMATOCRIT 39.8 % (36-48); HEMOGLOBIN 13.3 g/dL (12.0-16.0); MEAN CORPUSCULAR HEMOGLOBIN 32 pg (27-31); MEAN CORPUSCULAR HGB CONC 33 % (32-36); MEAN CORPUSCULAR VOLUME 97 fL (79.0-98.0); PLATELET COUNT (AUTO) 308 K/uL (130-430); RED CELL DISTRIBUTION WIDTH 13.2 % (9.0-15.0); WHITE BLOOD COUNT (AUTO) 8.5 K/uL (4.8-10.8)
[2018-06-10 19:22] LABS: BASOPHILS % (AUTO) 0.3 % (0.0-2.0); EOSINOPHILS % (AUTO) 0.1 % (0.0-4.0); LYMPHOCYTES # (AUTO) 1.4 K/uL (1.0-5.5); LYMPHOCYTES % (AUTO) 17.1 % (20.5-51.5); MONOCYTES # (AUTO) 0.7 K/uL (0.0-1.0); MONOCYTES % (AUTO) 7.8 % (1.7-9.3); NEUTROPHILS # (AUTO) 6.4 K/uL (1.8-7.7); NEUTROPHILS % (AUTO) 74.7 % (40.0-70.0)
[2018-06-10] MEDS ORDERED: LORazepam 2 MG/ML VIAL (FOR ER USE) ONE (19:24)
[2018-06-10 19:30] LABS: CALCIUM 9.5 mg/dL (8.4-11.0); CREATININE 0.58 mg/dL (0.55-1.30); POTASSIUM 3.9 mmol/L (3.5-5.1)
[2018-06-10 19:31] LABS: ALBUMIN 3.5 g/dL (3.4-4.8); TOTAL BILIRUBIN 0.5 mg/dL (0.0-1.0)
[2018-06-10] MEDS ORDERED: NS 500 ML IV ONE (20:45)
[2018-06-10 21:04] LABS: BARBITURATE, URINE POSITIVE (NEG <=200); BENZODIAZEPINE, URINE POSITIVE (NEG <=150); CANNABINOID, URINE NEGATIVE (NEG <=50); COCAINE, URINE NEGATIVE (NEG <=150); METHAMPHETAMINES SCREEN,URINE NEGATIVE (NEG <=500); OPIATE, URINE NEGATIVE (NEG <=100); PHENCYCLIDINE SCREEN,URINE NEGATIVE (NEG <=25); UR TRICYCLIC ANTIDEPRESSANTS NEGATIVE (NEG <=300); URINE AMPHETAMINE NEGATIVE (NEG <=500); URINE METHADONE NEGATIVE (NEG <=200); URINE OXYCODONE SCREEN NEGATIVE (NEG <=100); URINE PROPOXYPHENE SCREEN NEGATIVE (NEG <=300)
[2018-06-10 21:05] LABS: BILIRUBIN,URINE NEGATIVE (NEGATIVE); BLOOD, URINE NEGATIVE (NEGATIVE); CLARITY/URINE HAZY (CLEAR); COLOR,URINE YELLOW (YELLOW); GLUCOSE,URINE NEGATIVE (NEGATIVE); KETONES,URINE NEGATIVE (NEGATIVE); LEUKOCYTE ESTERASE ,URINE TRACE (NEGATIVE); NITRITE, URINE NEGATIVE (NEGATIVE); PROTEIN URINE 1+ (NEGATIVE); UROBILINOGEN,URINE 0.2 (0.2-1.0)
[2018-06-10 21:06] LABS: BACTERIA,URINE FEW /HPF (None Seen); MUCUS,URINE None Seen /LPF (None Seen); RBC,URINE NONE SEEN /HPF (0-3)
[2018-06-10] MEDS ORDERED: LEVOFLOXACIN 500 MG/D5W 100 ML IV ONE (21:15)
[2018-06-10 21:31] LABS: INR 1.3 (0.8-1.2); PROTHROMBIN TIME 13.3 SECS (9.5-12.5)
[2018-06-10 21:51] LABS: PHENOBARBITAL 30.9 ug/mL (15.0-40.0)
[2018-06-10] MEDS ORDERED: ASPIRIN 81 MG TAB.CHEW PO ONE (22:15)
[2018-06-10 22:52] VITALS: BP_SYST 141
[2018-06-11] MEDS ORDERED: ACETAMINOPHEN/CODEINE 300 MG-30 MG TABLET PO PRN (01:00)
[2018-06-11] MEDS ORDERED: TEMAZEPAM 15 MG CAPSULE PO PRN (01:00)
[2018-06-11] MEDS ORDERED: IBUPROFEN 400 MG TABLET PO PRN (01:00)
[2018-06-11] MEDS ORDERED: HYDROcodone/ACETAMIN 5-325 MG TAB (NORCO/ VICODIN) PO PRN (01:15)
[2018-06-11] MEDS ORDERED: HYDROcodone/ACETAMIN 10-325 MG TAB PO PRN (01:15)
[2018-06-11] MEDS ORDERED: ONDANSETRON HCL 4 MG/2 ML VIAL IVP PRN (01:15)
[2018-06-11] MEDS ORDERED: LEVOFLOXACIN 500 MG/D5W 100 ML IV SCH (01:15)
[2018-06-11] MEDS ORDERED: ACETAMINOPHEN 325 MG TABLET PO PRN (01:15)
[2018-06-11 01:43] VITALS: BP_SYST 118
[2018-06-11] MEDS: NORMAL SALINE 5 ML DISP.SYRIN IVF SCH ×3 (05:36→22:12)
[2018-06-11 08:22] VITALS: BP_SYST 147
[2018-06-11] MEDS ORDERED: CALCIUM POLYCARBOPHIL 625 MG PO SCH (09:00)
[2018-06-11] MEDS: DOCUSATE SODIUM 100 MG/10 ML UDC PO SCH (09:00)
[2018-06-11] MEDS ORDERED: NUT TX IMPAIRED DIGEST FXN PO SCH (09:00)
[2018-06-11] MEDS: FLUoxetine HCL 20 MG CAPSULE (PROzac) PO SCH (09:05)
[2018-06-11] MEDS: CHOLECALCIFEROL (VITAMIN D-3) 400 UNIT TABLET PO SCH (09:05)
[2018-06-11] MEDS: MULTIVITAMINS TAB 1 TABLET PO SCH (09:06)
[2018-06-11] MEDS: BENZTROPINE MESYLATE 1 MG TABLET PO SCH ×2 (09:06→22:09)
[2018-06-11] MEDS: levETIRAcetam 500 MG TABLET PO SCH ×2 (09:06→22:09)
[2018-06-11] MEDS: POLYETHYLENE GLYCOL 3350, 17 GM/ POWD.PACK PO SCH (09:11)
[2018-06-11 11:37] VITALS: BP_SYST 143
[2018-06-11 15:31] VITALS: BP_SYST 121
[2018-06-11 20:39] VITALS: BP_SYST 123
[2018-06-11] MEDS ORDERED: PSYLLIUM HUSK 0.4 GM PO SCH (21:00)
[2018-06-11] MEDS: OSELTAMIVIR PHOSPHATE 75 MG CAPSULE PO SCH (22:09)
[2018-06-11] MEDS: LEVOFLOXACIN 250 MG/D5W 50 ML IV SCH (22:09)
[2018-06-11] MEDS: PHENobarbital 30 MG TABLET PO SCH (22:11)
[2018-06-11] MEDS: HEPARIN SODIUM,PORCINE 5000 UNITS/ML VIAL SUBCUT SCH (22:14)
[2018-06-12 01:04] VITALS: BP_SYST 126
[2018-06-12] MEDS: NORMAL SALINE 5 ML DISP.SYRIN IVF SCH ×3 (06:02→23:10)
[2018-06-12 07:45] VITALS: BP_SYST 116
[2018-06-12 09:34] LABS: WHITE BLOOD COUNT (AUTO) 7.4 K/uL (4.8-10.8)
[2018-06-12 09:35] LABS: HEMATOCRIT 37.4 % (36-48); HEMOGLOBIN 12.6 g/dL (12.0-16.0); MEAN CORPUSCULAR HEMOGLOBIN 32 pg (27-31); MEAN CORPUSCULAR HGB CONC 34 % (32-36); MEAN CORPUSCULAR VOLUME 97 fL (79.0-98.0); PLATELET COUNT (AUTO) 284 K/uL (130-430); RED BLOOD CELL COUNT(AUTO) 3.87 MIL/uL (4.2-6.2); RED CELL DISTRIBUTION WIDTH 13.2 % (9.0-15.0)
[2018-06-12 09:36] LABS: BASOPHILS % (AUTO) 0.1 % (0.0-2.0); EOSINOPHILS % (AUTO) 0.1 % (0.0-4.0); LYMPHOCYTES # (AUTO) 1.4 K/uL (1.0-5.5); LYMPHOCYTES % (AUTO) 19.2 % (20.5-51.5); MONOCYTES # (AUTO) 0.6 K/uL (0.0-1.0); NEUTROPHILS # (AUTO) 5.4 K/uL (1.8-7.7); NEUTROPHILS % (AUTO) 72.6 % (40.0-70.0)
[2018-06-12 09:40] LABS: CALCIUM 9.4 mg/dL (8.4-11.0); CREATININE 0.47 mg/dL (0.55-1.30); POTASSIUM 3.5 mmol/L (3.5-5.1)
[2018-06-12 09:41] LABS: C-REACTIVE PROTEIN QUANT 4.9 mg/dL (0-0.5)
[2018-06-12] MEDS: CHOLECALCIFEROL (VITAMIN D-3) 400 UNIT TABLET PO SCH (09:41)
[2018-06-12] MEDS: OSELTAMIVIR PHOSPHATE 75 MG CAPSULE PO SCH ×2 (09:41→21:26)
[2018-06-12] MEDS: POLYETHYLENE GLYCOL 3350, 17 GM/ POWD.PACK PO SCH (09:42)
[2018-06-12] MEDS: levETIRAcetam 500 MG TABLET PO SCH ×2 (09:42→21:25)
[2018-06-12] MEDS: MULTIVITAMINS TAB 1 TABLET PO SCH (09:42)
[2018-06-12] MEDS: BENZTROPINE MESYLATE 1 MG TABLET PO SCH ×2 (09:42→21:26)
[2018-06-12] MEDS: FLUoxetine HCL 20 MG CAPSULE (PROzac) PO SCH (09:42)
[2018-06-12] MEDS: DOCUSATE SODIUM 100 MG/10 ML UDC PO SCH (09:42)
[2018-06-12] MEDS: HEPARIN SODIUM,PORCINE 5000 UNITS/ML VIAL SUBCUT SCH ×2 (09:46→21:24)
[2018-06-12 10:18] LABS: ERYTHROCYTE SEDIMENTATION RATE 54 MM/HR (0-20)
[2018-06-12 11:34] VITALS: BP_SYST 110
[2018-06-12 16:12] VITALS: BP_SYST 124
[2018-06-12 20:00] VITALS: BP_SYST 102
[2018-06-12] MEDS: LEVOFLOXACIN 250 MG/D5W 50 ML IV SCH (21:25)
[2018-06-13 01:15] VITALS: BP_SYST 117
[2018-06-13] MEDS: NORMAL SALINE 5 ML DISP.SYRIN IVF SCH ×3 (06:16→21:05)
[2018-06-13 08:00] VITALS: BP_SYST 112
[2018-06-13 08:39] LABS: CALCIUM 9.1 mg/dL (8.4-11.0); CREATININE 0.6 mg/dL (0.55-1.30); POTASSIUM 3.6 mmol/L (3.5-5.1)
[2018-06-13 08:42] LABS: ALBUMIN 3.1 g/dL (3.4-4.8); TOTAL BILIRUBIN 0.5 mg/dL (0.0-1.0)
[2018-06-13 10:03] LABS: HEMOGLOBIN 12.8 g/dL (12.0-16.0); RED BLOOD CELL COUNT(AUTO) 3.96 MIL/uL (4.2-6.2); WHITE BLOOD COUNT (AUTO) 5.7 K/uL (4.8-10.8)
[2018-06-13 10:04] LABS: HEMATOCRIT 39.2 % (36-48); MEAN CORPUSCULAR HEMOGLOBIN 32 pg (27-31); MEAN CORPUSCULAR HGB CONC 33 % (32-36); MEAN CORPUSCULAR VOLUME 99 fL (79.0-98.0); PLATELET COUNT (AUTO) 286 K/uL (130-430); RED CELL DISTRIBUTION WIDTH 13.4 % (9.0-15.0)
[2018-06-13] MEDS: MULTIVITAMINS TAB 1 TABLET PO SCH (10:47)
[2018-06-13] MEDS: levETIRAcetam 500 MG TABLET PO SCH ×2 (10:48→20:57)
[2018-06-13] MEDS: OSELTAMIVIR PHOSPHATE 75 MG CAPSULE PO SCH ×2 (10:48→20:58)
[2018-06-13] MEDS: CHOLECALCIFEROL (VITAMIN D-3) 400 UNIT TABLET PO SCH (10:48)
[2018-06-13] MEDS: DOCUSATE SODIUM 100 MG/10 ML UDC PO SCH (10:48)
[2018-06-13] MEDS: POLYETHYLENE GLYCOL 3350, 17 GM/ POWD.PACK PO SCH (10:48)
[2018-06-13] MEDS: FLUoxetine HCL 20 MG CAPSULE (PROzac) PO SCH (10:48)
[2018-06-13] MEDS: BENZTROPINE MESYLATE 1 MG TABLET PO SCH ×2 (10:49→20:57)
[2018-06-13] MEDS: HEPARIN SODIUM,PORCINE 5000 UNITS/ML VIAL SUBCUT SCH ×2 (10:52→21:07)
[2018-06-13 11:34] LABS: ERYTHROCYTE SEDIMENTATION RATE 57 MM/HR (0-20)
[2018-06-13 12:09] VITALS: BP_SYST 127
[2018-06-13 15:48] LABS: BASOPHILS % (MANUAL) 0 % (0-2); EOSINOPHILS % (MANUAL) 0 % (0-7); LYMPHOCYTES % (MANUAL) 26 % (20-46); MONOCYTES % (MANUAL) 7 % (0-11)
[2018-06-13 16:37] VITALS: BP_SYST 122
[2018-06-13 20:00] VITALS: BP_SYST 102
[2018-06-13] MEDS: PHENobarbital 30 MG TABLET PO SCH (20:57)
[2018-06-13] MEDS: LEVOFLOXACIN 250 MG/D5W 50 ML IV SCH (21:05)
[2018-06-14] VITALS: BP_SYST 129
[2018-06-14] MEDS: NORMAL SALINE 5 ML DISP.SYRIN IVF SCH (05:19)
[2018-06-14 08:09] LABS: C-REACTIVE PROTEIN QUANT 3.8 mg/dL (0-0.5); CALCIUM 9.3 mg/dL (8.4-11.0); CREATININE 0.56 mg/dL (0.55-1.30); POTASSIUM 3.9 mmol/L (3.5-5.1)
[2018-06-14 08:45] VITALS: BP_SYST 102
[2018-06-14] MEDS: DOCUSATE SODIUM 100 MG/10 ML UDC PO SCH (08:47)
[2018-06-14] MEDS: BENZTROPINE MESYLATE 1 MG TABLET PO SCH (08:48)
[2018-06-14] MEDS: CHOLECALCIFEROL (VITAMIN D-3) 400 UNIT TABLET PO SCH (08:48)
[2018-06-14] MEDS: levETIRAcetam 500 MG TABLET PO SCH (08:49)
[2018-06-14] MEDS: FLUoxetine HCL 20 MG CAPSULE (PROzac) PO SCH (08:49)
[2018-06-14] MEDS: OSELTAMIVIR PHOSPHATE 75 MG CAPSULE PO SCH (08:49)
[2018-06-14] MEDS: POLYETHYLENE GLYCOL 3350, 17 GM/ POWD.PACK PO SCH (08:49)
[2018-06-14] MEDS: MULTIVITAMINS TAB 1 TABLET PO SCH (08:49)
[2018-06-14] MEDS: HEPARIN SODIUM,PORCINE 5000 UNITS/ML VIAL SUBCUT SCH (08:50)
[2018-06-14 09:33] LABS: HEMATOCRIT 37.5 % (36-48); HEMOGLOBIN 12.6 g/dL (12.0-16.0); RED BLOOD CELL COUNT(AUTO) 3.93 MIL/uL (4.2-6.2); WHITE BLOOD COUNT (AUTO) 6.9 K/uL (4.8-10.8)
[2018-06-14 09:34] LABS: MEAN CORPUSCULAR HEMOGLOBIN 32 pg (27-31); MEAN CORPUSCULAR HGB CONC 34 % (32-36); MEAN CORPUSCULAR VOLUME 95 fL (79.0-98.0); PLATELET COUNT (AUTO) 309 K/uL (130-430); RED CELL DISTRIBUTION WIDTH 13.5 % (9.0-15.0)
[2018-06-14 09:35] LABS: BASOPHILS % (AUTO) 0.1 % (0.0-2.0); EOSINOPHILS % (AUTO) 0.2 % (0.0-4.0); LYMPHOCYTES # (AUTO) 1.9 K/uL (1.0-5.5); LYMPHOCYTES % (AUTO) 27.4 % (20.5-51.5); MONOCYTES # (AUTO) 0.7 K/uL (0.0-1.0); MONOCYTES % (AUTO) 10.4 % (1.7-9.3); NEUTROPHILS # (AUTO) 4.3 K/uL (1.8-7.7); NEUTROPHILS % (AUTO) 61.9 % (40.0-70.0)
[2018-06-14 11:40] LABS: ERYTHROCYTE SEDIMENTATION RATE 57 MM/HR (0-20)
[2018-06-14 12:30] VITALS: BP_SYST 111
[2018-06-14] MEDS ORDERED: CIPR-172 PO (12:46)
[2018-06-14 12:50] VITALS: BP_SYST 108
== END 2018-06-14 13:05 | DRG 101 ==
LOC: SED 17:31 → STU 22:07
PROVIDERS: ADMIT Preventive Medicine Preventive Medicine/Occupational Environmental Medicine; ATTEND Preventive Medicine Preventive Medicine/Occupational Environmental Medicine
DX: G40.909 Epilepsy, unspecified, not intractable, without status epilepticus (principal); N39.0 Urinary tract infection, site not specified; F72 Severe intellectual disabilities; G82.20 Paraplegia, unspecified; E87.0 Hyperosmolality and hypernatremia; B34.9 Viral infection, unspecified; J11.1 Influenza due to unidentified influenza virus with other respiratory manifestations; E88.09 Other disorders of plasma-protein metabolism, not elsewhere classified; G20 Parkinson's disease; Z88.0 Allergy status to penicillin; Z91.013 Allergy to seafood; Z91.018 Allergy to other foods; Z88.8 Allergy status to other drugs, medicaments and biological substances
CPT/HCPCS: 36415; 70450-TC; 71045; 80048; 80053; 80184-TC; 80307; 81000-TC; 83605; 84484; 85007; 85025; 85027; 85610-TC; 85651-TC; 85730-TC; 86140; 86710; 87040-TC; 87081; 87086; 93005; 96365; 96374; 99285; G0378; G9035; J1644; J1956; J2060; J7040; J7050